=== PATIENT | male | born 1965 | race African-American/Black ===

== ENCOUNTER 2022-04-25 10:53 | Emergency (ER) | payer OTHER ==
[2022-04-25 11:15] VITALS: PULSE 82; RESP 18; TEMP 97.8; BMI 32.8
[2022-04-25 11:31] VITALS: BP 123/87
[2022-04-25] MEDS ORDERED: ASPIRIN 81 MG CHEWABLE TABLETS PO ONE (12:01)
[2022-04-25] MEDS ORDERED: ASPIRIN 81 MG CHEWABLE TABLETS ONE (12:11)
[2022-04-25 13:09] LABS: EOS % 2.4 % (0-4.5); HEMATOCRIT 45.6 % (35.4-49); HEMOGLOBIN 15.7 GM/dL (11.7-16.9); MCH 34.2 pg (25.7-33.7); MCHC 34.6 g/dl (32.0-35.9); MEAN CELL VOLUME 98.9 fl (80-96); MEAN PLT VOLUME 8.7 fl (7.5-11.1); MONO % 7.6 % (3.8-10.2); PLATELET COUNT 305 10^3/uL (134-434); RDW 15.1 % (11.9-15.9); WHITE BLOOD COUNT 13.8 K/mm3 (4.0-10.0)
[2022-04-25 13:16] LABS: INR 1.11 (0.83-1.09); PROTHROMBIN TIME (PATIENT) 12.8 SEC (9.7-13.0)
[2022-04-25 13:19] LABS: ACTIVATED PTT 23.7 SECONDS (25.2-36.5)
[2022-04-25 13:27] LABS: CALCIUM 9.2 mg/dL (8.5-10.1)
[2022-04-25 13:29] LABS: BLOOD UREA NITROGEN 11.3 mg/dL (7-18)
[2022-04-25 13:33] LABS: BILIRUBIN,TOTAL 1.1 mg/dL (0.2-1); TOT PROT 7.8 g/dl (6.4-8.2)
[2022-04-25 15:11] LABS: CALCIUM 10.1 mg/dL (8.5-10.1)
[2022-04-25 15:12] LABS: BLOOD UREA NITROGEN 12.8 mg/dL (7-18)
[2022-04-25 15:14] LABS: CREATININE 0.9 mg/dL (0.55-1.3)
[2022-04-25] MEDS ORDERED: ONDANSETRON 4 MG/2 ML VIAL ONE (15:20)
[2022-04-25] MEDS ORDERED: ONDANSETRON 4 MG/2 ML VIAL IVPUSH ONE (15:29)
[2022-04-25] MEDS ORDERED: FAMOTIDINE 20 MG/50 ML IVPB 20 MG/50 ML MG IVPB ONE ×2 (15:29→15:42)
[2022-04-25] MEDS ORDERED: MAG HYDROX/AL HYDROX/SIMETH 30 ML UNIT-DOSE CUP PO ONE (15:29)
[2022-04-25] MEDS ORDERED: MAG HYDROX/AL HYDROX/SIMETH 30 ML UNIT-DOSE CUP ONE (15:42)
== END 2022-04-25 19:17 | disposition left against medical advice (07) ==
LOC: JER 10:53
PROC: 3E033GC Introduction of Other Therapeutic Substance into Peripheral Vein, Percutaneous Approach (ICD-10-PCS; principal; 2022-04-25)
PROC: 3E033GC Introduction of Other Therapeutic Substance into Peripheral Vein, Percutaneous Approach (ICD-10-PCS; 2022-04-25)
DX: T50.901A Poisoning by unspecified drugs, medicaments and biological substances, accidental (unintentional), initial encounter (principal)
CPT/HCPCS: 0241U-QW; 36415; 71045-TC-FY; 71275-TC; 80048; 80053; 84484; 85025; 85379; 85610; 85730; 93005; 93010; 99285-25

== ENCOUNTER 2023-06-23 01:04 | Inpatient (IN) | payer OTHER ==
[2023-06-23 01:12] VITALS: BMI 20.7
[2023-06-23] MEDS ORDERED: ACETAMINOPHEN 1000 MG/100 ML BAG IVPB ONE (03:04)
[2023-06-23] MEDS ORDERED: ACETAMINOPHEN INJECTION 100 ML IVPB ONE (03:12)
[2023-06-23 03:39] LABS: BASO % 0.4 % (0-2.0); EOS % 1.4 % (0-4.5); HEMATOCRIT 39.9 % (35.4-49); MCH 30.8 pg (25.7-33.7); MCHC 32.5 g/dl (32.0-35.9); MEAN CELL VOLUME 94.8 fl (80-96); MEAN PLT VOLUME 7.2 fl (7.5-11.1); MONO % 6.7 % (3.8-10.2); NEUT % 85.5 % (42.8-82.8); PLATELET COUNT 419 10^3/uL (134-434); RDW 14.8 % (11.9-15.9); WHITE BLOOD COUNT 17.4 K/mm3 (4.0-10.0)
[2023-06-23 03:45] LABS: INR 1.12 (0.83-1.09)
[2023-06-23 03:48] LABS: ACTIVATED PTT 25.4 SECONDS (25.2-36.5)
[2023-06-23 04:05] LABS: POTASSIUM 3.5 mmol/L (3.5-5.1)
[2023-06-23 04:07] LABS: CALCIUM 8.8 mg/dL (8.5-10.1)
[2023-06-23 04:08] LABS: ALBUMIN 3.1 g/dl (3.4-5.0); BLOOD UREA NITROGEN 8.2 mg/dL (7-18)
[2023-06-23 04:13] LABS: BILIRUBIN,TOTAL 1.1 mg/dL (0.2-1); TOT PROT 6.5 g/dl (6.4-8.2)
[2023-06-23] MEDS ORDERED: PIPERACILLIN/TAZOB 4.5 GM 4.5 GM in DEXTROSE 5%-WATER 100 ML IVPB ONE (07:08)
[2023-06-23] MEDS ORDERED: VANCOMYCIN 1,000 MG in DEXTROSE 5%-WATER - 250 ML IVPB ONE (07:08)
[2023-06-23] MEDS ORDERED: CEFEPIME HCL 2 GM VIAL (RESTRICTED TO ID) IVPB ONE ×2 (07:10→13:25)
[2023-06-23] MEDS ORDERED: VANCOMYCIN 1 GRAM (PRE-DOCKED) 1,000 MG/250 ML BAG IVPB ONE (08:56)
[2023-06-23] MEDS ORDERED: SODIUM CHLORIDE 0.9% 500 ML INFUS.BAG IV ONE (09:22)
[2023-06-23] MEDS ORDERED: ALBUTEROL SO4 HFA INHALER IH PRN ×2 (10:08→13:25)
[2023-06-23] MEDS ORDERED: DEXTROSE 5%-LACTATED RINGERS 1,000 ML IV SCH (10:15)
[2023-06-23] MEDS ORDERED: CEFEPIME 2 GM/100 ML BAG IVPB ONE (10:30)
[2023-06-23] MEDS ORDERED: INSULIN SLIDING SCALE (NOVOLOG) 1 VIAL SQ SCH (11:00)
[2023-06-23] MEDS ORDERED: ALBUTEROL SO4 HFA INHALER IH ONE (11:34)
[2023-06-23] MEDS ORDERED: PROPOFOL 40 ML ONE (11:34)
[2023-06-23] MEDS ORDERED: MIDAZOLAM HCL 2 MG/2 ML SINGLE DOSE VIAL ONE (11:34)
[2023-06-23] MEDS ORDERED: GLYCOPYRROLATE 0.2 MG/1 ML VIAL ONE (11:36)
[2023-06-23] MEDS ORDERED: DEXAMETHASONE SOD PHOSPHATE 4 MG/1 ML VIAL ONE (12:23)
[2023-06-23] MEDS ORDERED: ONDANSETRON 4 MG/2 ML VIAL ONE ×2 (12:23)
[2023-06-23] MEDS ORDERED: BUPIVACAINE HCL/PF 0.25% (2.5MG/ML) 10 ML VIAL IJ ONE ×2 (12:33)
[2023-06-23] MEDS ORDERED: ONDANSETRON 4 MG/2 ML VIAL IVPUSH PRN ×2 (12:56→13:25)
[2023-06-23] MEDS ORDERED: LACTATED RINGERS SOLUTION 1,000 ML IV SCH ×2 (13:00→13:25)
[2023-06-23] MEDS ORDERED: ALBUTEROL SO4 0.083% IH SOL 2.5 MG/3 ML VIAL.NEB. NEB ONE ×2 (13:21→14:00)
[2023-06-23] MEDS ORDERED: oxyCODONE HCL 5 MG TABLET PO PRN (13:25)
[2023-06-23] MEDS: INSULIN SLIDING SCALE (NOVOLOG) 1 VIAL SQ SCH ×2 (17:18→22:17)
[2023-06-23] MEDS ORDERED: ACETAMINOPHEN 1000 MG/100 ML BAG IVPB SCH (19:00)
[2023-06-23] MEDS ORDERED: ATORVASTATIN CA 40 MG TABLET (FP) PO SCH ×2 (22:00)
[2023-06-23] MEDS: metroNIDAZOLE 250 MG TABLET PO SCH (22:11)
[2023-06-23] MEDS: DOCUSATE SODIUM 100 MG CAPSULE (FP) PO SCH ×2 (22:12)
[2023-06-23] MEDS ORDERED: ACETAMINOPHEN 500 MG TABLET (FP) PO PRN (22:33)
[2023-06-24] MEDS: DOCUSATE SODIUM 100 MG CAPSULE (FP) PO SCH ×2 (05:49→13:41)
[2023-06-24] MEDS: metroNIDAZOLE 250 MG TABLET PO SCH ×2 (05:49→13:41)
[2023-06-24] MEDS: INSULIN SLIDING SCALE (NOVOLOG) 1 VIAL SQ SCH ×2 (06:12→12:09)
[2023-06-24 09:02] LABS: BASO % 0.4 % (0-2.0); EOS % 0.7 % (0-4.5); HEMATOCRIT 35.8 % (35.4-49); LYMPH % 8.8 % (8-40); MCH 31.8 pg (25.7-33.7); MCHC 33.5 g/dl (32.0-35.9); MEAN CELL VOLUME 94.8 fl (80-96); MEAN PLT VOLUME 7.7 fl (7.5-11.1); MONO % 8.9 % (3.8-10.2); NEUT % 81.2 % (42.8-82.8); PLATELET COUNT 393 10^3/uL (134-434); RBC 3.77 M/mm3 (4.00-5.60); RDW 14.6 % (11.9-15.9); WHITE BLOOD COUNT 15.7 K/mm3 (4.0-10.0)
[2023-06-24 09:08] LABS: POTASSIUM 3.7 mmol/L (3.5-5.1)
[2023-06-24 09:11] LABS: CALCIUM 8.3 mg/dL (8.5-10.1)
[2023-06-24 09:12] LABS: BLOOD UREA NITROGEN 8.3 mg/dL (7-18)
[2023-06-24 09:15] LABS: CREATININE 0.7 mg/dL (0.55-1.3)
[2023-06-24 09:16] LABS: BILIRUBIN,TOTAL 0.9 mg/dL (0.2-1)
[2023-06-24 09:17] LABS: TOT PROT 5.1 g/dl (6.4-8.2)
[2023-06-24 09:20] LABS: ALBUMIN 2.4 g/dl (3.4-5.0)
[2023-06-24] MEDS ORDERED: NICOTINE 14 MG/24 HOURS TOPICAL PATCH TD SCH ×2 (10:00)
[2023-06-24] MEDS ORDERED: ASPIRIN 81 MG CHEWABLE TABLETS PO SCH ×2 (10:00)
[2023-06-24] MEDS ORDERED: INSULIN (NOVOLOG) ASPART 100 UNITS/ML 10ML VIAL ONE (11:59)
[2023-06-24 14:14] VITALS: BP 106/61; PULSE 73; RESP 20; TEMP 98
== END 2023-06-24 16:15 | disposition home or self-care (01) | DRG 394 ==
LOC: JER 01:04 → JERBED 07:54 → J7W 15:46
PROVIDERS: ADMIT Internal Medicine; ATTEND Nurse Practitioner Acute Care
PROC: 0DBQXZX Excision of Anus, External Approach, Diagnostic (ICD-10-PCS; 2023-06-23)
PROC: 0JJT3ZZ Inspection of Trunk Subcutaneous Tissue and Fascia, Percutaneous Approach (ICD-10-PCS; principal; 2023-06-23 21:30)
DX: K61.1 Rectal abscess (principal); K62.6 Ulcer of anus and rectum; I42.9 Cardiomyopathy, unspecified; F19.10 Other psychoactive substance abuse, uncomplicated; I10 Essential (primary) hypertension; E78.5 Hyperlipidemia, unspecified; J45.909 Unspecified asthma, uncomplicated; E11.9 Type 2 diabetes mellitus without complications
CPT/HCPCS: 36415; 71045-TC-FY; 74177-TC; 80053; 82962; 83735; 84100; 85025; 85610; 85730; 86850; 86900; 86901; 88305-TC; 93005; 93010; 94010; 94760; 99285-25; Q9967